=== PATIENT | female | born 1995 | race Caucasian/White ===

== ENCOUNTER 2023-11-13 13:45 | Outpatient (CLI) | payer BC, SELFPAY | END 2023-11-13 13:46 | disposition home or self-care (01) | LOC: NFLDREF 11-16 10:17 | PROVIDERS: PCP Physician Assistant Medical; Referring Provider Physician Assistant Medical; Visit Provider Physician Assistant Medical | DX: N92.0 Excessive and frequent menstruation with regular cycle (principal) | CPT/HCPCS: 80053; 80061; 84443 ==

== ENCOUNTER 2023-11-19 14:32 | Outpatient (CLI) | payer BC, SELFPAY ==
--- NOTE | 2023-11-19 15:00 | CRLHL7_ITS ---
For Patients: As a result of the Century Cures Act, medical imaging exams and procedure reports are released immediately into your electronic medical record. You may view this report before your referring provider. If you have questions, please contact your health care provider. INDICATION: IRREGULAR MENSES COMPARISON: none TECHNIQUE: 2D rogers scale and color Doppler images were acquired of the pelvis using a transabdominal and transvaginal approach. FINDINGS: Sonographic images demonstrate a normal size and smooth outer contour of the uterus. Uterus measures 8.1 cm in length by 4.1 cm in AP diameter by 4.6 cm in transverse dimension. Left superior intramural fibroid measures 10 x 6 x 9 millimeters. The endometrial lining appears normal and measures 5.8 mm in composite thickness. The right ovary measures 4.9 x 3.1 x 2.5 cm in size and the left ovary measures 3.6 x 2.0 x 3.7 cm. The ovaries demonstrate normal arterial and venous blood flow on color Doppler analysis. There are no suspicious fluid collections within the cul-de-sac. Left paraovarian cyst is present measuring 11 x 8 x 14 millimeters. Hypoechoic right ovarian cyst without internal blood flow measures 1.9 x 1.2 x 2.2 cm. Right ovarian cyst with internal septations noted measuring 2.7 x 2.0 x 2.1 cm. No internal blood flow. Simple cyst or dominant follicle left ovary measures 1.3 cm. IMPRESSION: Endometrial thickness 5.8 millimeters. No endometrial fluid. Left fundal intramural fibroid measures 1 cm. Simple left paraovarian cyst measures 1.4 cm and simple left ovarian cyst/dominant follicle measures 1.3 cm. Right ovarian cyst with internal septations measures 2.7 cm. Probable endometrioma right ovary measures 2.2 cm. Dictated by Timbo Bianchi MD @ 11/20/2023 7:06:56 AM (Electronically Signed)
== END 2023-11-19 14:33 | disposition home or self-care (01) ==
LOC: US 14:33
PROVIDERS: PCP Physician Assistant Medical; Visit Provider Physician Assistant Medical
DX: N92.0 Excessive and frequent menstruation with regular cycle (principal); R93.89 Abnormal findings on diagnostic imaging of other specified body structures; D25.1 Intramural leiomyoma of uterus; N83.292 Other ovarian cyst, left side
CPT/HCPCS: 76830; 76856

== ENCOUNTER 2024-02-01 13:58 | Outpatient (CLI) | payer BC, SELFPAY ==
--- NOTE | 2024-02-01 14:00 | CRLHL7_ITS ---
For Patients: As a result of the Century Cures Act, medical imaging exams and procedure reports are released immediately into your electronic medical record. You may view this report before your referring provider. If you have questions, please contact your health care provider. INDICATION: Unspecified ovarian cyst. TECHNIQUE: Transvaginal pelvic ultrasound. Grayscale and color Doppler images. COMPARISON: 11/19/2023 ultrasound. FINDINGS: Uterus is anteverted and measures 8.3 x 3.8 x 5.2 cm. Endometrial stripe thickness is 1 cm. 8 mm sub serosal fibroid in the anterior fundus is unchanged. Complex multi-septated cyst in the right ovary measures 2.1 cm, slightly smaller than on the prior exam was 2.7 cm and is diameter. Previously seen 2.2 cm right ovarian cyst with homogeneous low-level internal echoes has resolved. Left ovary appears normal. Previous left paraovarian cyst was not specifically imaged on today`s exam. IMPRESSION: 1. Resolution of previous right ovarian endometrioma/hemorrhagic cyst. 2. Slight interval decrease in the size of the complex septated right ovarian cyst now measuring 2.1 versus 2.7 cm. Recommend additional follow-up in 6-8 weeks. Dictated by Moshe Saucedo MD @ 02/03/2024 8:56:38 AM (Electronically Signed)
== END 2024-02-01 13:59 | disposition home or self-care (01) ==
LOC: US 13:59
PROVIDERS: PCP Physician Assistant Medical; Visit Provider Obstetrics & Gynecology
DX: N83.201 Unspecified ovarian cyst, right side (principal)
CPT/HCPCS: 76830

== ENCOUNTER 2024-07-26 16:48 | Day surgery (SDC) | payer BC, SELFPAY ==
[2024-07-26] VITALS (20 sets, daily range): BP systolic 93–119; BP diastolic 58–74; PULSE 70–92; RESP 16–18; TEMP 36.9; O2SAT 97–99; BMI 29.1
--- NOTE | 2024-07-26 18:16 | ED_ITS ---
HPI - Abdominal Pain General Date Seen: 07/26/24 Chief Complaint: Abdominal Pain Stated Complaint: extreme stomach pain Time Seen by Provider: 07/26/24 17:44 History of Present Illness HPI narrative: 28-year-old female presents to the ER today for concern for abdominal pain. She was sent to the clinic today by Dr. Mitch Meyer. She has a history of ovarian cysts in uterine fibroids. Per records she had ovarian cyst noted on ultrasounds in 2023. [place]. pelvis 02/01/2024 IMPRESSION: 1. Resolution of previous right ovarian endometrioma/hemorrhagic cyst. 2. Slight interval decrease in the size of the complex septated right ovarian cyst now measuring 2.1 versus 2.7 cm. Recommend additional follow-up in 6-8 weeks. Patient says yesterday evening she started having pain in the central part of her abdomen. It feels bloated and crampy it has been present ever since then. It sounds like it comes and goes leading clear triggering factors other than it is a lot worse when she moves. It made her nauseous. She has had chills but no objectively measured fever. Overnight she had several episodes of loose chunky diarrhea. No bloody or green diarrhea. Although she has been nauseous she has not vomited. Her pain is gotten worse this afternoon actually doubled her over and had her leaning up against the bed. Pain is not really in the same spot as her previous ovarian cyst related pain. She has not had any previous surgery such as gallbladder or appendix. No known abdominal trauma. Related Data Home Medications ?Medication ?Instructions ?Recorded ?Confirmed multivitamin (Daily Multi-Vitamin 1 tab PO QAM 06/02/23 07/26/24 tablet) omega 2-abd-weq-fish oil 60 mg-90 1 cap PO QDAY 06/02/23 07/26/24 mg-500 mg capsule (Fish Oil) flaxseed oil 1,000 mg capsule 1,000 mg PO QDAY 12/31/23 07/26/24 len (Zingiber officinalis) 250 250 mg PO QDAY 12/31/23 07/26/24 mg capsule Allergies Allergy/AdvReac Type Severity Reaction Status Date / Time No Known Drug Allergies [facility]ergy Verified 07/26/24 19:22 [facility] Medical History Family history of breast cancer ?Z80.3 - Family history of malignant neoplasm of breast (ICD-10) Surgical History History of wisdom tooth extraction ?K08.409 - Partial loss of teeth, unspecified cause, unspecified class (ICD- 10) Family History (Updated 01/01/24 @ 09:44 by Radha Murphy MD) Mother Breast cancer Social History (Updated 01/01/24 @ 09:45 by Radha Murphy MD) Narrative: Cis-gender, heterosexual woman. Relationship status: . Spouse/Partner: Brandon Education: High school graduate Occupation: Long-Term services at [employer] Tobacco: Lifetime nonsmoker E-cigarettes: No Alcohol: No Illicit/recreational drugs: No Safety concerns at home or work: No Dietary restriction(s): None Exercise: Yes, at least 3 days a week lifting weights and yoga. She also has a very physical job. What is your current living situation?: I presently have a place to live Problems where you live: no known problems In the past 12 months, utilities in danger of being shut off: no In past 12 months, lack of transportation kept you from medical appts, meetings, work, or getting things needed for daily living: no In the past 12 mos, have been you worried that your food would run out before you had money to buy more?: never true In the past 12 mos, the food you bought just didn't last and you didn't have money to buy more?: never true Smoking Status: Never smoker How often do you have a drink containing alcohol: never AUDIT-C Alcohol total score: 0 Non-prescribed substance use: denies use How often does anyone, including family, friends and others, physically hurt you : never How often does anyone, including family, friends and others, insult or talk down to you: never How often does anyone, including family, friends and others, threaten you with harm: never How often does anyone, including family, friends and others, scream or curse at you: never Exam Narrative: Exam Narrative: Constitutional: Appears well-developed and well-nourished. Alert. Uncomfortable but conversant. Cannot lay back for abdominal exam because it hurts too much to lay flat. HENT: Head: Atraumatic. Nose: Nose normal. Mouth/Throat: Oral mucosa is clear and moist. no trismus. Eyes: Conjunctivae normal. EOM normal. Pupils equal, round, and reactive to light. No scleral icterus. Neck: Normal range of motion. Neck supple. No tracheal deviation present. Cardiovascular: Normal rate, regular rhythm. No gallop. No friction rub. No murmur heard. Symmetric radial artery pulses Pulmonary/Chest: Effort normal. No stridor. No respiratory distress. No wheezes. No rales. No rhonchi . No tenderness. Abdominal: Soft. Bowel sounds normal. No distension. No mass. Diffuse tenderness, seemingly maximal tenderness in the epigastrium and periumbilical region. No definite CVA tenderness. Tenderness seems to be worse in the upper abdomen than the lower. . No rebound. No guarding. Musculoskeletal: RUE: Normal range of motion. No tenderness. No deformity LUE: Normal range of motion. No tenderness. No deformity RLE: Normal range of motion. No edema. No tenderness. No deformity LLE: Normal range of motion. No edema. No tenderness. No deformity Neurological: Alert and oriented to person, place, and time. Normal strength. CN II-VII intact. No sensory deficit. GCS eye subscore is 4. GCS verbal subscore is 5. GCS motor subscore is 6. Normal coordination Skin: Skin is warm and dry. No rash noted. No pallor. Normal capillary refill. Psychiatric: Normal mood. Normal affect. Const: Vital Signs, click to edit/add: Vital Signs - 24 hr 07/26/24 17:06 07/26/24 20:38 07/26/24 20:46 Temperature 98.5 F Pulse Rate 83 Pulse Rate [Right Pulse Oximeter] 90 Respiratory Rate 18 16 Blood Pressure 99/58 L Blood Pressure [Le ft Upper Arm] 110/67 Pulse Oximetry 99 99 97 Oxygen Delivery Il thod Room Air 07/26/24 21:01 07/26/24 21:30 07/26/24 21:31 Temperature Pulse Rate 79 89 Pulse Rate [Right Pulse Oximeter] Respiratory Rate 16 Blood Pressure 95/65 93/60 Blood Pressure [Le ft Upper Arm] Pulse Oximetry 99 98 Oxygen Delivery Il thod 07/26/24 21:32 07/26/24 21:45 Temperature Pulse Rate 89 85 Pulse Rate [Right Pulse Oximeter] Respiratory Rate 16 Blood Pressure 108/67 Blood Pressure [Le ft Upper Arm] Pulse Oximetry 97 98 Oxygen Delivery Me thod Course Course ED Course: Recheck-pain improved after Dilaudid. Resting more comfortably. Blood pressure stable. Labs show white count of 13. Hemoglobin normal at 12. LFTs, lipase, kidney function normal. Recheck-urinalysis abnormal suggesting UTI. Will order Rocephin Recheck-recheck patient. CT scan is back and shows signs of hemoperitoneum. Patient remains hemodynamically stable. Discussed that she has fluid which appears to be blood on the CT scan. Also discussed other incidental findings including lung cysts that need outpatient follow-up. Source unclear but probably coming from a ruptured ovarian cyst. No signs of active bleeding. She continues to have stable vital signs. Consult page placed to windows server architect. Recheck-discussed with Dr. Jones who is currently in the OR with another complex case. She agrees with getting a pelvic ultrasound, repeat hemoglobin in 4 hours. She will see the patient as soon as she is available after completing her operative case. Recheck-Dr. Jones at bedside about 10:10 p.m.. She evaluated the patient remains hemodynamically stable. Recheck-patient's had a syncopal event that occurred as she was having her repeat labs drawn. He was assisted by nurses, bandage placed on his left eyebrow where he scraped it following the floor. He declined medical evaluation. Recheck-repeat hemoglobin drawn at 4:00 a.m. came back down about 2 g compared to initial hemoglobin. This is dropping further than what we would expect from hemodilution from her 1 L of IV saline Discussed with Dr. Jones and the anesthesia team. The plan will be to take the patient to the OR tonight for laparoscopy. Vital Signs Vital signs: Initial Vital Signs Temperature 98.5 F 07/26/24 17:06 Temperature Source Temporal Artery Scan 07/26/24 17:06 Pulse Rate 90 07/26/24 17:06 Respiratory Rate 18 07/26/24 17:06 Blood Pressure 110/67 07/26/24 17:06 Blood Pressure Mean 81 07/26/24 17:06 Blood Pressure Position Sitting 07/26/24 17:06 Pulse Oximetry 99 07/26/24 17:06 Oxygen Delivery Method Room Air 07/26/24 17:06 Vital Signs Temperature 98.5 F 07/26/24 17:06 Pulse Rate 90 07/26/24 17:06 Respiratory Rate 18 07/26/24 17:06 Blood Pressure 110/67 07/26/24 17:06 Pulse Oximetry 99 07/26/24 17:06 Oxygen Delivery Method Room Air 07/26/24 17:06 Temperature 98.5 F 07/26/24 17:06 Pulse Rate 85 07/26/24 21:45 Respiratory Rate 16 07/26/24 21:32 Blood Pressure 108/67 07/26/24 21:32 Pulse Oximetry 98 07/26/24 21:45 Oxygen Delivery Method Room Air 07/26/24 17:06 Medications Administered Medications: Generic Name Dose Route Start Last Admin Trade Name Freq PRN Reason Stop Dose Admin Hydromorphone HCl 0.5 mg 07/26/24 20:59 07/26/24 21:03 Hydromorphone 0.5 Mg/0.5 Ml Inj IVP 0.5 mg Q1H PRN Administration Pain Discontinued Medications Generic Name Dose Route Start Last Admin Trade Name Freq PRN Reason Stop Dose Admin Hydromorphone HCl 0.5 mg 07/26/24 18:28 07/26/24 18:39 Hydromorphone 0.5 Mg/0.5 Ml Inj IVP 0.5 mg Q1H PRN Administration Pain Sodium Chloride 1,000 mls @ 1,000 mls/hr 07/26/24 18:30 07/26/24 19:32 0.9 % Sodium Chloride 1000 Ml IV 07/26/24 19:29 Infused .Q1H JASON Infusion Ceftriaxone Sodium 1 gm/ 100 mls @ 200 mls/hr 07/26/24 20:26 07/26/24 20:42 Sodium Chloride IVPB 07/26/24 20:27 200 mls/hr ONCE ONE Administration Ketorolac Tromethamine 15 mg 07/26/24 18:28 07/26/24 18:39 Ketorolac 15 Mg/Ml Inj IVP 07/26/24 18:29 15 mg ONCE ONE Administration Ondansetron HCl 4 mg 07/26/24 18:28 07/26/24 18:39 Ondansetron 2 Mg/Ml Inj IVP 07/26/24 18:29 4 mg ONCE ONE Administration MDM - Abdominal Pain MDM Narrative Medical decision making narrative: Presented to the Emergency Department with generalized abdominal pain radiating to her right scapula. The differential diagnosis of abdominal pain includes: Appendicitis, Bowel Obstruction, Ulcer, Ischemia, Cholecystitis, Diverticulitis, Pancreatitis, UTI, kidney stone, Enteritis/Colitis, amongst many other etiologies. She has a history of ovarian cyst but is not really having specific pelvic pain and pain is dissimilar to her previous ovarian cyst related pain. Initial laboratory workup shows mild leukocytosis and UTI which we will treat with Rocephin. However her generalized abdominal pain is clearly not explained by urinary tract infection. She is not having flank pain to suggest pyelonephritis. CT scan came back positive for hemoperitoneum especially with blood in the right pericolic gutter which appears to stem from a right adnexal lesion, possibly a ruptured ovarian cyst. However precise source of the hemoperitoneum is not clear. She remains hemodynamically stable. No signs of active extravasation on CT scan. After observation here in the ER she remains hemodynamically stable but hemoglobin is dropping from 12.1 down to 10.2. This is in excess what we would expect from hemodilution from the IV fluids. windows server architect, Dr. Jones, will take the patient to the OR. Incidental note is made of pulmonary cysts. These are discussed with the patient and her . They understand the need for outpatient follow-up with her primary care and referral to pulmonology. She does not have any previous knowledge of the cyst. She does not have any other trouble breathing or any chronic lung disease. No history of cystic fibrosis. Lab Data Labs: Lab Results 07/26/24 07/26/24 07/26/24 Range/Units 18:22 18:28 18:40 WBC 13.37 H (4.50-11.00) K/uL RBC 4.13 (4.00-5.20) m/uL Hgb 12.1 (12.0-16.0) gm/dL Hct 35.5 (33.0-51.0) % MCV 86 (80-100) fL MCH 29 (26-34) pg MCHC 34 (32-36) gm/dL RDW Coeff of Calvin 11.8 (11.5-15.5) % Plt Count 247 (140-440) K/uL Neut % (Auto) 83.5 H (42.0-72.0) % Lymph % (Auto) 11.2 L (20-44) % [place] % (Auto) 4.3 (0.0-11.0) % Eos % (Auto) 0.6 (0.0-7.0) % Baso % (Auto) 0.3 (0.0-3.0) % Neut # (Auto) 11.20 H (1.7-7.0) K/uL Lymph # (Auto) 1.50 (0.90-2.90) K/uL [place] # (Auto) 0.60 (0.00-0.90) K/UL Eos # (Auto) 0.10 (0.00-0.50) K/uL Baso # (Auto) 0.00 (0.00-0.30) K/uL Abs Immat Gran (auto) 0.00 (0.00-0.30) K/uL Imm/Tot Granulo (auto) 0.1 % Sodium 137 (135-149) mmol/L Potassium 3.9 (3.6-5.1) mmol/L Chloride 103 (96-114) mmol/L Carbon Dioxide 23 (20-32) mmol/L Anion Gap 11 (7-15) mEq/L BUN 18 (5-24) mg/dL Creatinine 0.6 (0.5-1.5) mg/dL Estimated Creat Clear 129.51 Estimated GFR 125 ml/min Glucose 112 (60-115) mg/dL Calcium 8.9 (8.4-10.6) mg/dL Total Bilirubin 0.3 (0.1-1.5) mg/dL AST 19 (12-35) U/L ALT 22 (4-35) U/L Alkaline Phosphatase 69 (40-150) U/L Total Protein 6.9 (6.0-8.3) g/dL Albumin 4.6 (3.3-5.0) g/dL Lipase 85 (23-300) U/L Urine Color Yellow (Yellow) Urine Appearance Cloudy A (Clear) Urine pH 6.5 (5.0-8.5) Ur Specific [place] 1.025 (1.000-1.030) Urine Protein 3+ A (Negative) Urine Glucose (UA) Negative (Negative) Urine Ketones Trace A (Negative) Urine Blood 3+ A (Negative) Urine Nitrite Negative (Negative) Urine Bilirubin 1+ A (Negative) Urine Urobilinogen 0.2 (0.2-1.0) Ur Leukocyte Esterase 3+ A (Negative) Urine RBC 25-50 A (0-2) Urine WBC 10-25 A (0-5) Ur Squamous Epith Cells Few (None-Few) Urine Bacteria Moderate A (None) Urine HCG, Qual Negative (Negative) 07/26/24 Range/Units 22:15 WBC 9.40 (4.50-11.00) K/uL RBC 3.44 L (4.00-5.20) m/uL Hgb 10.2 L (12.0-16.0) gm/dL Hct 29.6 L (33.0-51.0) % MCV 86 (80-100) fL MCH 30 (26-34) pg MCHC 35 (32-36) gm/dL RDW Coeff of Calvin 11.9 (11.5-15.5) % Plt Count 211 (140-440) K/uL Neut % (Auto) 78.2 H (42.0-72.0) % Lymph % (Auto) 15.7 L (20-44) % [place] % (Auto) 4.7 (0.0-11.0) % Eos % (Auto) 0.3 (0.0-7.0) % Baso % (Auto) 0.2 (0.0-3.0) % Neut # (Auto) 7.40 H (1.7-7.0) K/uL Lymph # (Auto) 1.50 (0.90-2.90) K/uL [place] # (Auto) 0.40 (0.00-0.90) K/UL Eos # (Auto) 0.03 (0.00-0.50) K/uL Baso # (Auto) 0.02 (0.00-0.30) K/uL Abs Immat Gran (auto) 0.08 (0.00-0.30) K/uL Imm/Tot Granulo (auto) 0.9 % Sodium (135-149) mmol/L Potassium (3.6-5.1) mmol/L Chloride (96-114) mmol/L Carbon Dioxide (20-32) mmol/L Anion Gap (7-15) mEq/L BUN (5-24) mg/dL Creatinine (0.5-1.5) mg/dL Estimated Creat Clear Estimated GFR ml/min Glucose (60-115) mg/dL Calcium (8.4-10.6) mg/dL Total Bilirubin (0.1-1.5) mg/dL AST (12-35) U/L ALT (4-35) U/L Alkaline Phosphatase (40-150) U/L Total Protein (6.0-8.3) g/dL Albumin (3.3-5.0) g/dL Lipase (23-300) U/L Urine Color (Yellow) Urine Appearance (Clear) Urine pH (5.0-8.5) Ur Specific [place] (1.000-1.030) Urine Protein (Negative) Urine Glucose (UA) (Negative) Urine Ketones (Negative) Urine Blood (Negative) Urine Nitrite (Negative) Urine Bilirubin (Negative) Urine Urobilinogen (0.2-1.0) Ur Leukocyte Esterase (Negative) Urine RBC (0-2) Urine WBC (0-5) Ur Squamous Epith Cells (None-Few) Urine Bacteria (None) Urine HCG, Qual (Negative) Imaging Data CT scan - chest: Attestation: I have reviewed the pertinent imaging results. Radiologist's impression: IMPRESSION: 1. Negative for acute pulmonary embolism. 2. Trace bilateral pleural effusions with bibasilar atelectasis. 3. Multiple small air cysts throughout both lungs. Consider outpatient pulmonology consult. CT scan - abdomen: Attestation: I have reviewed the pertinent imaging results. Radiologist's impression: IMPRESSION: 1. Moderate volume hemoperitoneum throughout the abdomen and pelvis which is most hyperdense in the pelvis. No definite focus of active extravasation is seen. This may be related to a ruptured hemorrhagic ovarian cyst but is indeterminate. 2. The ovaries are enlarged and contain multiple follicles without discrete adnexal mass visualized. Consider further evaluation with pelvic ultrasound. 3. Trace bilateral pleural effusions. US - abdomen: Attestation: I have reviewed the pertinent imaging results. Radiologist's impression: IMPRESSION: 1. Heterogeneous echogenic material is present in the cul de sac which may represent blood products from hemoperitoneum. Hemorrhage from a ruptured cyst should be considered. Clinical follow-up is advised. Discharge Plan Discharge Clinical Impression: Hemoperitoneum, Anemia, UTI (urinary tract infection), Lung cyst Patient Disposition: XFER to OR Condition: Guarded Follow Up/Referrals: Jatin Perez PA-C [Primary Care Provider] -
[2024-07-26 18:29] LABS: Appearance Urine Cloudy (Clear); Bilirubin Urine 1+ (Negative); Blood Urine 3+ (Negative); Color Urine Yellow (Yellow); Glucose Urine Negative (Negative); Ketones Urine Trace (Negative); Leukocyte Esterase Urine 3+ (Negative); Nitrite Urine Negative (Negative); Protein Urine 3+ (Negative); Specific Gravity Urine 1.025 (1.000-1.030); Urobilinogen Urine 0.2 (0.2-1.0); pH Urine 6.5 (5.0-8.5)
--- NOTE | 2024-07-26 18:29 | CRLHL7_ITS ---
For Patients: As a result of the Century Cures Act, medical imaging exams and procedure reports are released immediately into your electronic medical record. You may view this report before your referring provider. If you have questions, please contact your health care provider. INDICATION: Epigastric abdominal pain, right scapular pain, diarrhea. TECHNIQUE: CT of the abdomen and pelvis acquired with 89 cc Isovue 370 IV contrast. Coronal and sagittal reconstructions. COMPARISON: Pelvic ultrasound 02/01/2024. FINDINGS: Lower chest: Trace bilateral pleural effusions with bibasilar atelectasis. Multiple small pulmonary air cysts are seen in the lung bases. Liver: Normal in size and attenuation. No suspicious masses. Gallbladder and bile ducts: Unremarkable. No biliary dilation. Spleen: Unremarkable. Pancreas: Unremarkable. Adrenal glands: Unremarkable. Kidneys, Ureters, and Bladder: Symmetric enhancement. No hydronephrosis or ureteral dilation. No obstructing urinary calculi identified. No bladder wall thickening. There is a small amount of excreted contrast layering in the bladder. Reproductive organs: The uterus appears grossly unremarkable. The ovaries are enlarged and contain multiple follicles. GI tract/Peritoneum: No small bowel dilation. Large stool burden. The appendix contains hyperdense material but is otherwise normal in caliber with no surrounding inflammation. No intraperitoneal free air. There is a moderate amount of high density free fluid throughout the abdomen and pelvis which is most hyperdense in the right anterior pelvis and pelvic cul-de-sac. Findings are compatible with blood products. No definite focus of active extravasation is seen. Vasculature: Abdominal aorta is normal in caliber. Mesenteric arteries appear patent. Lymph nodes: No lymphadenopathy. Abdominal Wall: Unremarkable. Bones: Unremarkable for age. IMPRESSION: 1. Moderate volume hemoperitoneum throughout the abdomen and pelvis which is most hyperdense in the pelvis. No definite focus of active extravasation is seen. This may be related to a ruptured hemorrhagic ovarian cyst but is indeterminate. 2. The ovaries are enlarged and contain multiple follicles without discrete adnexal mass visualized. Consider further evaluation with pelvic ultrasound. 3. Trace bilateral pleural effusions. Please note that all CT scans at this facility use dose modulation, iterative reconstruction, and/or weight-based dosing when appropriate to reduce radiation dose to as low as reasonably achievable. Dictated by Melissa Barney MD @ 07/26/2024 8:00:56 PM (Electronically Signed)
[2024-07-26] MEDS: 0.9 % SODIUM CHLORIDE 1000 ml 1,000 ML IV (18:39)
[2024-07-26] MEDS: KETOROLAC 15 MG/ML inj IVP (18:39)
[2024-07-26] MEDS: HYDROmorphone 0.5 mg/0.5 ml inj IVP ×2 (18:39→21:03)
[2024-07-26] MEDS: ONDANSETRON 2 MG/ML inj 4 MG IVP (18:39)
[2024-07-26 18:50] LABS: Basophils Percent Auto 0.3 % (0.0-3.0); Eosinophils Percent Auto 0.6 % (0.0-7.0); Hematocrit 35.5 % (33.0-51.0); Hemoglobin* 12.1 gm/dL (12.0-16.0); Immature Granulocytes Pct Auto 0.1 %; Lymphocytes Percent Auto 11.2 % (20-44); Mean Corpuscular HGB Conc 34 gm/dL (32-36); Mean Corpuscular Hemoglobin 29 pg (26-34); Mean Corpuscular Volume 86 fL (80-100); Monocytes Percent Auto 4.3 % (0.0-11.0); Neutrophils Percent Auto 83.5 % (42.0-72.0); Platelet Count* 247 K/uL (140-440); RDW Coefficient of Variation % 11.8 % (11.5-15.5); Red Blood Count 4.13 m/uL (4.00-5.20); White Blood Count* 13.37 K/uL (4.50-11.00)
[2024-07-26 18:53] LABS: Bacteria Urine Moderate; RBC Urine 25-50 (0-2); Squamous Epithelial Cell Urine Few (None-Few)
[2024-07-26 18:58] LABS: Slide Review Reflex No
[2024-07-26 19:06] LABS: Albumin* 4.6 g/dL (3.3-5.0); Chloride* 103 mmol/L (96-114); Potassium* 3.9 mmol/L (3.6-5.1); Sodium* 137 mmol/L (135-149)
[2024-07-26 19:08] LABS: Alanine Aminotransferase* 22 U/L (4-35); Alkaline Phosphatase* 69 U/L (40-150); Anion Gap 11 mEq/L (7-15); Aspartate Amino Transferase* 19 U/L (12-35); Bilirubin Total* 0.3 mg/dL (0.1-1.5); Blood Urea Nitrogen* 18 mg/dL (5-24); Carbon Dioxide* 23 mmol/L (20-32); Creatinine* 0.6 mg/dL (0.5-1.5); Est. Creatinine Clearance* 129.51; Estimated Glomerular Filt Rate 125 ml/min; Total Protein* 6.9 g/dL (6.0-8.3)
[2024-07-26 19:09] LABS: Calcium* 8.9 mg/dL (8.4-10.6); Glucose* 112 mg/dL (60-115); Lipase* 85 U/L (23-300)
[2024-07-26 19:22] LABS: Ur HCG Qualitative* Negative (Negative)
--- NOTE | 2024-07-26 19:30 | CRLHL7_ITS ---
For Patients: As a result of the Century Cures Act, medical imaging exams and procedure reports are released immediately into your electronic medical record. You may view this report before your referring provider. If you have questions, please contact your health care provider. INDICATION: Right scapula pain, chest pain. TECHNIQUE: CT chest angiogram acquired with 89 cc Isovue 370 IV contrast according to the PE protocol. Coronal and sagittal reconstructions. 3D MIPS post-processing was performed. COMPARISON: None. FINDINGS: Cardiovascular structures: Normal heart size. Normal caliber thoracic aorta and central pulmonary arteries. No acute pulmonary embolism identified. Mediastinum and nathan: No pathologically enlarged lymph nodes. No pericardial effusion. Lungs and pleura: Trace bilateral pleural effusions with bibasilar atelectasis. No focal consolidation or pneumothorax. No suspicious pulmonary nodules. No significant bronchial wall thickening. There are multiple small thin-walled air cysts throughout both lungs. Chest wall: No mass or adenopathy. Upper abdomen: Please refer to separate report. Bones: Unremarkable for age. No acute fracture identified. IMPRESSION: 1. Negative for acute pulmonary embolism. 2. Trace bilateral pleural effusions with bibasilar atelectasis. 3. Multiple small air cysts throughout both lungs. Consider outpatient pulmonology consult. Please note that all CT scans at this facility use dose modulation, iterative reconstruction, and/or weight-based dosing when appropriate to reduce radiation dose to as low as reasonably achievable. Dictated by Melissa Barney MD @ 07/26/2024 8:11:55 PM (Electronically Signed)
--- NOTE | 2024-07-26 20:28 | CRLHL7_ITS ---
For Patients: As a result of the Century Cures Act, medical imaging exams and procedure reports are released immediately into your electronic medical record. You may view this report before your referring provider. If you have questions, please contact your health care provider. INDICATION: Abdominal pain, ovarian cyst, Pelvic pain TECHNIQUE: Ultrasound pelvis transvaginal. Endovaginal imaging was performed to better visualize the endometrium and ovaries. Real-time rogers scale sonographic images with spectral and color Doppler imaging of the ovaries were obtained. COMPARISON: 02/01/2024 FINDINGS: Uterus: 9 x 5 x 3.7 cm. Normal echotexture of the myometrium noted with no masses are seen. Endometrium: No sign of endometrial mass or fluid present. Right ovary: 4.8 x 3.3 x 2.7 cm. There is a heterogeneous lesion with internal echogenicities and shadowing within the right ovary 1.5 cm which may represent a partially calcified lesion. Normal arterial and venous blood flow seen in the right ovary. Left ovary: 4.6 x 3.4 x 2.3 cm. The left ovary is normal in appearance and echotexture. Doppler exam of the ovary is limited. Cul-de-sac: Heterogeneous echogenic material is present in the cul de sac which may represent blood products from hemoperitoneum. IMPRESSION: 1. Heterogeneous echogenic material is present in the cul de sac which may represent blood products from hemoperitoneum. Hemorrhage from a ruptured cyst should be considered. Clinical follow-up is advised. Dictated by Andres Daugherty MD @ 07/26/2024 9:58:47 PM Dictated by: Andres Daugherty MD @ 07/26/2024 21:59:05 (Electronically Signed)
[2024-07-26] MEDS: cefTRIAXone 1 GM in 0.9 % SODIUM CHLORIDE Mini-bag 100 ML IVPB (20:42)
[2024-07-26 22:41] LABS: Basophils Absolute Auto 0.02 K/uL (0.00-0.30); Basophils Percent Auto 0.2 % (0.0-3.0); Eosinophils Absolute Auto 0.03 K/uL (0.00-0.50); Eosinophils Percent Auto 0.3 % (0.0-7.0); Hematocrit 29.6 % (33.0-51.0); Hemoglobin* 10.2 gm/dL (12.0-16.0); Immature Granulocytes Abs Auto 0.08 K/uL (0.00-0.30); Immature Granulocytes Pct Auto 0.9 %; Lymphocytes Percent Auto 15.7 % (20-44); Mean Corpuscular HGB Conc 35 gm/dL (32-36); Mean Corpuscular Hemoglobin 30 pg (26-34); Mean Corpuscular Volume 86 fL (80-100); Monocytes Percent Auto 4.7 % (0.0-11.0); Neutrophils Percent Auto 78.2 % (42.0-72.0); Platelet Count* 211 K/uL (140-440); RDW Coefficient of Variation % 11.9 % (11.5-15.5); Red Blood Count 3.44 m/uL (4.00-5.20)
[2024-07-26 22:43] LABS: Slide Review Reflex No
[2024-07-26] MEDS: LACTATED RINGERS 1000 ML 1,000 ML 75 ML IV (23:24)
--- NOTE | 2024-07-26 23:27 | P.GYNCN_ITS ---
INSTRUMENTATION INSTRUCTOR - CN: HPI Data of Consult Date Seen: 07/26/24 Patient: [facility] Patient Consult date: 07/26/24 Requesting Physician: Katie Joens MD Primary Care Provider: Jatin Perez PA-C Consult Narrative Reason for consult: abdominal pain Narrative: Nasima Ann is a 28 year old female seen by request of Dr. Oniel Stone for evaluation of suspected hemoperitoneum on CT of abdomen and pelvis. I have reviewed the available images and discussed my findings and recommendations with Dr. Stone. Nasima is a 28-year-old G0 woman who has a history of ovarian cyst. On pelvic ultrasound 11/19/2023, she was found to have a uterus of normal dimensions. She had a 10 mm intramural fibroid. Endometrial stripe was normal. There was a left paraovarian cyst measuring 14 mm in greatest dimension. There was a hypoechoic right ovarian cyst without internal blood flow measuring 2.2 cm in greatest dimension, and right ovarian cyst with internal septations noted measuring 2.7 cm in greatest dimension. Simple cyst/dominant follicle on left ovary measuring 1.3 cm. She had of follow-up pelvic ultrasound 02/01/2024. This showed a complex multi septated cyst in the right ovary measuring 2.1 cm in greatest dimension. The previously right ovarian cyst measuring 2.7 cm in greatest dimension had resolved. [facility] by Dr. Murphy in January of 2024. Dr. Murphy did not recommend surgery for the ovarian cyst at that time. She did recommend a fertility evaluation, as the patient has been sexually active with her since the latter part of 2022 without conception and has not been using contraception. Tonight, she developed severe pelvic pain, and presented to the ER for the same. She had a CT scan for evaluation: IMPRESSION: 1. Moderate volume hemoperitoneum throughout the abdomen and pelvis which is most hyperdense in the pelvis. No definite focus of active extravasation is seen. This may be related to a ruptured hemorrhagic ovarian cyst but is indeterminate. 2. The ovaries are enlarged and contain multiple follicles without discrete adnexal mass visualized. Consider further evaluation with pelvic ultrasound. 3. Trace bilateral pleural effusions. This was followed by a pelvic ultrasound: Uterus: 9 x 5 x 3.7 cm. Normal echotexture of the myometrium noted with no masses are seen. Endometrium: No sign of endometrial mass or fluid present. Right ovary: 4.8 x 3.3 x 2.7 cm. There is a heterogeneous lesion with internal echogenicities and shadowing within the right ovary 1.5 cm which may represent a partially calcified lesion. Normal arterial and venous blood flow seen in the right ovary. Left ovary: 4.6 x 3.4 x 2.3 cm. The left ovary is normal in appearance and echotexture. Doppler exam of the ovary is limited. Cul-de-sac: Heterogeneous echogenic material is present in the cul de sac which may represent blood products from hemoperitoneum. IMPRESSION: 1. Heterogeneous echogenic material is present in the cul de sac which may represent blood products from hemoperitoneum. Hemorrhage from a ruptured cyst should be considered. Clinical follow-up is advised. She was treated with IV Dilaudid, and her pain is improved. Over the course of 4 hours, her hemoglobins were followed. Her hemoglobin fell from 12.1-10.2 over the course of this time. She did receive 1 L of crystalloid during this time. Urine test is negative. 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 Relationship status: . Spouse/Partner: Brandon Education: High school graduate Occupation: [employer] services at [employer] Tobacco: Lifetime nonsmoker E-cigarettes: No Alcohol: No Illicit/recreational drugs: No Safety concerns at home or work: No Dietary restriction(s): None Exercise: Yes, at least 3 days a week lifting weights and yoga. She also has a very physical job. What is your current living situation?: I presently have a place to live Problems where you live: no known problems In the past 12 months, utilities in danger of being shut off: no In past 12 months, lack of transportation kept you from medical appts, meetings, work, or getting things needed for daily living: no In the past 12 mos, have been you worried that your food would run out before you had money to buy more?: never true In the past 12 mos, the food you bought just didn't last and you didn't have money to buy more?: never true Smoking Status: Never smoker How often do you have a drink containing alcohol: never AUDIT-C Alcohol total score: 0 Non-prescribed substance use: denies use How often does anyone, including family, friends and others, physically hurt you : never How often does anyone, including family, friends and others, insult or talk down to you: never How often does anyone, including family, friends and others, threaten you with harm: never How often does anyone, including family, friends and others, scream or curse at you: never Meds Home Medications and Allergies Home Medications ?Medication ?Instructions ?Recorded ?Confirmed ?Type multivitamin (Daily Multi-Vitamin 1 tab PO QAM 06/02/23 07/26/24 History tablet) omega 8-hsz-qiu-fish oil 60 mg-90 1 cap PO QDAY 06/02/23 07/26/24 History mg-500 mg capsule (Fish Oil) flaxseed oil 1,000 mg capsule 1,000 mg PO QDAY 12/31/23 07/26/24 History len (Zingiber officinalis) 250 250 mg PO QDAY 12/31/23 07/26/24 History mg capsule Allergies Allergy/AdvReac Type Severity Reaction Status Date / Time No Known Drug Allergies Allergy Verified 07/26/24 19:22 INSTRUMENTATION INSTRUCTOR - Exam Physical Exam: Vital signs: Temp Pulse Resp BP Pulse Ox O2 Del Method 98.5 F 85 16 119/74 98 Room Air 07/26/24 23:26 07/26/24 23:26 07/26/24 23:26 07/26/24 23:26 07/26/24 23:26 07/26/24 23:26 Narrative: Physical exam: Vitals as noted above. General: No acute distress Psych: Alert and oriented x 3, full affect HEENT: Normocephalic, atraumatic Abdomen: Normoactive bowel sounds, soft, no tenderness, rebound, of bald Mar guarding is noted; this is after patient has received Dilaudid. Pelvic exam: Deferred to OR INSTRUMENTATION INSTRUCTOR - Results Labs Labs: Short CBC 07/26/24 07/26/24 Range/Units 18:40 22:15 WBC 13.37 H 9.40 (4.50-11.00) K/uL Hgb 12.1 10.2 L (12.0-16.0) gm/dL Hct 35.5 29.6 L (33.0-51.0) % Plt Count 247 211 (140-440) K/uL BMP 07/26/24 18:40 Sodium 137 Potassium 3.9 Chloride 103 Carbon Dioxide 23 BUN 18 Creatinine 0.6 Glucose 112 Calcium 8.9 Liver Function 07/26/24 Range/Units 18:40 Total Bilirubin 0.3 (0.1-1.5) mg/dL AST 19 (12-35) U/L ALT 22 (4-35) U/L Alkaline Phosphatase 69 (40-150) U/L Albumin 4.6 (3.3-5.0) g/dL Urine 07/26/24 Range/Units 18:22 Urine Color Yellow (Yellow) Urine Appearance Cloudy A (Clear) Urine pH 6.5 (5.0-8.5) Ur Specific Seneca 1.025 (1.000-1.030) Urine Protein 3+ A (Negative) Urine Glucose (UA) Negative (Negative) Assessment and Plan Assessment and plan (1) Ruptured ovarian cyst: Status: Acute (2) Hemoperitoneum: Status: Acute Plan Given the continuing drop in her hemoglobin, I recommended laparoscopy with evacuation of hemoperitoneum and possible ovarian cystectomy. We discussed the risks of procedures, including bleeding/hemorrhage, infection, the low likelihood of blood transfusion, damage to internal organs, risks of anesthesia. Consent form was reviewed with and signed by patient.
[2024-07-27] VITALS (16 sets, daily range): BP systolic 94–114; BP diastolic 55–67; PULSE 73–96; RESP 12–22; TEMP 36.4–37.1; O2SAT 95–99
[2024-07-27] MEDS: BUPIVACAINE 0.25% 30 ML INJECTION (00:59)
--- NOTE | 2024-07-27 01:43 | P.ANES_ITS ---
Anesthesia Charges Start Date/Time Anesthesia Start Date: 07/26/24 Anesthesia Start Time: 23:24 Stop Date/Time Anesthesia Stop Date: 07/27/24 Anesthesia Stop Time: 01:41 Summary Emergency: BANK CASHIER Coding CPT Codes CPT Codes: ANESTH SURG LOWER ABDOMEN - 64522 ([id number]) P1 - NORMAL HEALTHY PATIENT, QZ - BANK CASHIER SVC W/O HEARING OFFICER BY Additional Codes: Summary - Emergency: BANK CASHIER ([id number])
--- NOTE | 2024-07-27 01:43 | W.ANESCHARGE ---
Anesthesia Charges Start Date/Time Anesthesia Start Date: 07/26/24 Anesthesia Start Time: 23:24 Stop Date/Time Anesthesia Stop Date: 07/27/24 Anesthesia Stop Time: 01:41 Summary Emergency: INTERMEDIATE SCHOOL TEACHER Coding CPT Codes CPT Codes: ANESTH SURG LOWER ABDOMEN - 12458 ([id number]) P1 - NORMAL HEALTHY PATIENT, QZ - INTERMEDIATE SCHOOL TEACHER SVC W/O HAND BOOKBINDER BY Additional Codes: Summary - Emergency: INTERMEDIATE SCHOOL TEACHER ([id number])
--- NOTE | 2024-07-27 01:46 | SUR.PHASEI ---
Patient came to PACU awake and appropriate, stated no pain or nausea when asked. Warm blankets provided.
[2024-07-27] MEDS: MEPERIDINE 25 MG/ML INJ 12.5 MG IVP (01:50)
--- NOTE | 2024-07-27 01:54 | P.GYNPRC_ITS ---
Procedure Note Date of procedure: 07/27/24 Will [facility] bill your pro fee for this procedure?: Yes Pre-op diagnosis: Abdominal pain Hemoperitoneum on CT of abdomen and pelvis Post-op diagnosis: Hemoperitoneum, apparently originating from right hematosalpinx Dilated right fallopian tube with suspected endometrioma filling the mid isthmic portion and clotted blood at the fimbriated edge Endometriosis Procedure: Laparoscopy with evacuation of hemoperitoneum, fulguration and excision of endometriosis, and right salpingectomy Anesthesia: GETA Complications: None Surgeon: Katie Jones MD Estimated blood loss (mL): 220 (210 of hemoperitoneum, 10 cc intraoperative blood loss) IV fluids (mL): 1,000 Urine Output (mL): 150 Pathology: specimen obtained, sent to pathology (1. Biopsy of cul-de-sac 2. Nodule in right ovarian fossa 3. Right tube) Condition: stable Disposition: PACU Findings: 1. Upon pelvic exam under anesthesia, the cervix and vagina were normal in appearance. Uterus was mobile and anteverted, of normal size and texture. There were no palpable adnexal masses. 2. Upon laparoscopy, survey of the upper abdomen revealed dark red blood adjacent to the liver and stomach. Otherwise, there was a normal appearance to the inferior edge of the liver, gallbladder and stomach. Bowels were grossly normal appearance, as was the appendix. Survey of the pelvis revealed normal appearance to the uterus. Right tube was dilated beginning in its midportion, extending to the fimbria, and had adherent, clotted blood at the fimbriated edge. Left tube was normal appearance. There was 1 follicle on the surface of the right ovary. There was an endometriotic implant on the surface of the left ovary, which was associated with a very small apparent endometrioma. The cul-de-sac showed some subtle tiny erythematous macules along the right side. There was a nodule of deep infiltrating endometriosis in the right ovarian fossa superior to the ureter. The bladder reflection was normal in appearance. Procedure Description: Patient was taken to the operating room with IV running. She was positioned in dorsal lithotomy position with her legs fully supported in Yellofin stirrups. General anesthesia was administered. She was prepped and draped in the usual sterile fashion. Bimanual exam was performed for the above-noted findings. Speculum was inserted. A single-toothed uterine manipulator was inserted th rough the cervix into the lower uterine segment, and affixed to the anterior cervical lip. Speculum was removed. Khan catheter was placed. Patient's legs were placed in neutral position. Attention was turned to patient's abdomen. The infraumbilical area was infiltrated with small amount of Marcaine. An infraumbilical incision was made with a scalpel and carried through to the underlying layer of fascia with a hemostat. The 5 mm Fios Kii trocar was assembled with laparoscope within, and insufflator attached. While tenting up the abdomen manually, the trocar was passed through the anterior abdominal wall into the peritoneal cavity. Trocar was removed. Pneumoperitoneum was achieved. Survey of abdomen and pelvis revealed the above-noted findings. Two additional port sites were created. The first was in the patient's left lower quadrant, just superior medial to the left ASIS. The second was a hand's breath superior to and slightly medial to the first. The third was in the pat ient's right lower quadrant, just superior medial to the right ASIS. Each was infiltrated with small amount of Marcaine prior to incision. An 11 mm incision was made at the LLQ site, and a 5 mm at the left abdominal port site, making sure the large vessels were out of harm's way. A Fios Kii port was inserted at each site (an 11 mm in the LLQ and a 5 mm in the left abdomen), under direct visualization and without complication. The balloon on each of the three ports was inflated, holding each in place. The larger suction student loan counselor was used to evacuate the abdomen and pelvis of clotted blood; a total of 210 mL was removed in this way. The peritoneum of the cul-de-sac was elevated with laparoscopic Maryland forceps and of excisional biopsy of the above described macules was performed sharply. Hemostasis of the dissection bed was achieved with monopolar cautery. The deep infiltrating endometriotic nodule along the right ovarian fossa was similarly grasped with Maryland forceps and held away from the pelvic sidewall. The ureter was found to be inferior to this lesion. It was excised sharply and sent to pathology. Hemostasis was achieved at this site with monopolar cautery. The surface of the left ovary exhibited a black endometriotic nodule. I did treat this with monopolar cautery, but in the process, an apparent small cyst was ruptured, consistent in appearance with a chocolate cyst. I fully examined this tiny cyst cavity and no remaining cyst wall was noted. The bed was hemostatic. Finally, the right fallopian tube was elevated away from the adjacent ovary. The mesosalpinx was divided with the Thunderbeat by polar device, moving laterally to medially, and the tube was amputated at the right uterine cornua. I was unable to remove the tube the left lower quadrant port site without an Endo-Catch bag, which was ultimately inserted, deployed, and the tube was placed within. This was then removed from the abdomen within the bag and sent to pathology for further analysis. Hemostasis of the right mesosalpinx was noted. The left lower quadrant port had been removed. Initially, an attempt was made to close the fascial defect with a Daniel-Bryan device, but this was successful in closing only the peritoneum. Thus, the fascia was identified through the abdomen, grasped with Yessica, and closed with a single stitch of 0 Vicryl. The balloon tips of the remaining 2 ports were deflated and the pneumoperitoneum was released. The ports were removed. The Bovie was used to obtain hemostasis at each port site. Skin of each port site was closed with a subcuticular stitch of 4-0 Monocryl. Surgical glue was applied above this. The patient's legs were placed back in lithotomy position. The uterine manipulator was removed and hemostasis of the cervix was noted. The Khan catheter was removed. The patient tolerated procedure well and was taken to recovery area in stable condition.
--- NOTE | 2024-07-27 01:55 | SUR.PHASEI ---
Patient having shaking from anesthesia and the hiccups, Meperidine 12.5 mg given IV.
--- NOTE | 2024-07-27 02:07 | SUR.PHASEI ---
Meperidine helped with shaking and hiccups are now gone also. Patient meets discharge criteria from PACU
[2024-07-27] MEDS: LACTATED RINGERS 1000 ML 1,000 ML 100 ML IV (02:09)
[2024-07-27] MEDS: KETOROLAC 30 MG/ML inj IVP ×2 (02:49→09:01)
[2024-07-27] MEDS: ACETAMINOPHEN 500 MG TABLET 1000 MG PO ×2 (06:46→12:26)
[2024-07-27] MEDS: OXYCODONE 5 MG TABLET PO ×3 (06:46→11:59)
--- NOTE | 2024-07-27 08:12 | P.GYNPN_ITS ---
FELT PULLER - A/P Assessment and plan (1) S/P laparoscopy: Problem details: Right salpingectomy for endometriosis, evacuation of hemoperitoneum, fulguration of endometriosis Status: Acute Plan Will administer a second dose of oxycodone po now, and another dose of Toradol 30 mg IV at 9:00 am. Reassess for discharge later this morning. Will add antibiotic for UTI to discharge instructions. Postoperative Procedures: Procedures Operation Date: 07/26/24 23:30 Actual Procedure Side Surgeon p Diagnostic Laparoscopy, evacuation of hemoperitoneum,fulguration and excision of endometriosis,right salpingectomy Katie Jones MD Postoperative day: 1 Postoperative status: marginal pain control Postoperative plan: routine post-op care Time Spent With Patient Time: Total time spent is greater than 50% in coordination of care (as documented) at patient's floor/unit and/or counseling patient: Time with patient: less than 15 minutes FELT PULLER- PN:Subj Post-Op Subjective Time Seen by Provider: 08:00 Date Seen: 07/27/24 Post Operative Details: Post-operative day number 1: status post Laparoscopy with right salpingectomy, evacuation of hemoperitoneum, and fulguration of endometriosis. She complains of pain near the LLQ incisions, rates 8/10, worse with movement. Was able to get up to bathroom with assist. Pain level is described as improved from the pain that brought h into the E.R. Denies nausea, states that she is hungry. Has questions about treatment for UTI. Was diagnosed last evening and treated with a dose of ceftriaxone. Subjective: pain not well controlled FELT PULLER-PN: Obj Exam Physical Exam: Vital signs: Temp Pulse Resp BP Pulse Ox O2 Del Method 97.9 F 87 16 99/63 96 Room Air 07/27/24 02:25 07/27/24 05:25 07/27/24 05:25 07/27/24 05:25 07/27/24 05:25 07/27/24 05:25 Constitutional: Constitutional: no acute distress (while lying still in bed) Routine HEENT Exam: Head: Present normal inspection Routine Neck Exam: Neck: Present supple Routine Respiratory Exam: Respiratory: Present CTA bilaterally Routine Cardiovascular Exam: Cardiovascular: Present RRR Routine Abdominal Exam: Comments: Soft, nondistended, incisions clean, dry, intact. No surrounding ecchymoses or erythema. Tenderness is centered around LLQ lower 11 mm incision site. FELT PULLER - PN: Obj Data Labs Labs: Laboratory Results - last 24 hr 07/26/24 07/26/24 07/26/24 18:22 18:28 18:40 WBC 13.37 H RBC 4.13 Hgb 12.1 Hct 35.5 MCV 86 MCH 29 MCHC 34 RDW Coeff of Calvin 11.8 Plt Count 247 Neut % (Auto) 83.5 H Lymph % (Auto) 11.2 L Finney % (Auto) 4.3 Eos % (Auto) 0.6 Baso % (Auto) 0.3 Neut # (Auto) 11.20 H Lymph # (Auto) 1.50 Finney # (Auto) 0.60 Eos # (Auto) 0.10 Baso # (Auto) 0.00 Abs Immat Gran (auto) 0.00 Imm/Tot Granulo (auto) 0.1 Sodium 137 Potassium 3.9 Chloride 103 Carbon Dioxide 23 Anion Gap 11 BUN 18 Creatinine 0.6 Estimated Creat Clear 129.51 Estimated GFR 125 Glucose 112 Calcium 8.9 Total Bilirubin 0.3 AST 19 ALT 22 Alkaline Phosphatase 69 Total Protein 6.9 Albumin 4.6 Lipase 85 Urine Color Yellow Urine Appearance Cloudy A Urine pH 6.5 Ur Specific Barry 1.025 Urine Protein 3+ A Urine Glucose (UA) Negative Urine Ketones Trace A Urine Blood 3+ A Urine Nitrite Negative Urine Bilirubin 1+ A Urine Urobilinogen 0.2 Ur Leukocyte Esterase 3+ A Urine RBC 25-50 A Urine WBC 10-25 A Ur Squamous Epith Cells Few Urine Bacteria Moderate A Urine HCG, Qual Negative Blood Type Antibody Screen 07/26/24 07/26/24 22:15 Unknown WBC 9.40 RBC 3.44 L Hgb 10.2 L Hct 29.6 L MCV 86 MCH 30 MCHC 35 RDW Coeff of Calvin 11.9 Plt Count 211 Neut % (Auto) 78.2 H Lymph % (Auto) 15.7 L Finney % (Auto) 4.7 Eos % (Auto) 0.3 Baso % (Auto) 0.2 Neut # (Auto) 7.40 H Lymph # (Auto) 1.50 Finney # (Auto) 0.40 Eos # (Auto) 0.03 Baso # (Auto) 0.02 Abs Immat Gran (auto) 0.08 Imm/Tot Granulo (auto) 0.9 Sodium Potassium Chloride Carbon Dioxide Anion Gap BUN Creatinine Estimated Creat Clear Estimated GFR Glucose Calcium Total Bilirubin AST ALT Alkaline Phosphatase Total Protein Albumin Lipase Urine Color Urine Appearance Urine pH Ur Specific Barry Urine Protein Urine Glucose (UA) Urine Ketones Urine Blood Urine Nitrite Urine Bilirubin Urine Urobilinogen Ur Leukocyte Esterase Urine RBC Urine WBC Ur Squamous Epith Cells Urine Bacteria Urine HCG, Qual Blood Type O Positive Antibody Screen NEGATIVE
--- NOTE | 2024-07-27 08:32 | PC.NURSE ---
When pt was seen at 0725 pt was c/o at a 9/10 in her left lower abd. Pain meds given around 0645 had not helped also using kpad. Dr. Martinez notified of pain. saw the pt. Plan to continue to monitor. Pain meds as ordered.
[2024-07-29 11:52] LABS: HCG Quantitative* < 2.39 mIU/mL
== END 2024-07-27 12:50 | disposition home or self-care (01) ==
LOC: ED 22:50 → SS 22:58 → OB 07-27 10:27
PROVIDERS: Family Medicine; Emergency Provider Emergency Medicine; PCP Physician Assistant Medical; Visit Provider Obstetrics & Gynecology
PROC: (CPT 49320; principal; 2024-07-26 23:15)
DX: K66.1 Hemoperitoneum (principal); N83.6 Hematosalpinx; N80.101 Endometriosis of right ovary, unspecified depth; N83.291 Other ovarian cyst, right side; R10.84 Generalized abdominal pain; D25.1 Intramural leiomyoma of uterus; D64.9 Anemia, unspecified; N39.0 Urinary tract infection, site not specified; J98.4 Other disorders of lung
CPT/HCPCS: 49322; 58662; 58661; 00840; 36415; 71275; 74177; 76830; 80053; 81001; 81025; 83690; 84702; 85025; 86850; 86900; 86901; 87086; 88305; 93976; 94761; 99140; 99284; 99285; A9270; J0330; J0665; J0696; J1171; J1885; J2175; J2250; J2371; J2405; J2704; J3010; J7030; J7120; Q9967

== ENCOUNTER 2024-08-10 12:00 | Outpatient (CLI) | payer BC, SELFPAY | END 2024-08-10 12:01 | disposition home or self-care (01) | PROVIDERS: PCP Physician Assistant Medical; Visit Provider Obstetrics & Gynecology | DX: N97.0 Female infertility associated with anovulation (principal) | CPT/HCPCS: 83498; 83520; 84146; 84270; 84402; 84403; 84443 ==

== ENCOUNTER 2024-08-27 19:02 | Emergency (ER) | payer BC, SELFPAY ==
[2024-08-27 19:06] VITALS: BP 115/75; PULSE 89; RESP 16; TEMP 36.9; O2SAT 98; BMI 30.7
--- NOTE | 2024-08-27 19:14 | ED.GENADULT ---
HPI - General Adult General Chief complaint: Back Injury/Pain Stated complaint: Back pain Time Seen by Provider: 08/27/24 19:13 History of Present Illness HPI narrative: mid back pain more on R side started at 1400 , unknown cause . tylenol 1g and 600 ibu. 28-year-old young woman presenting to the emergency department with concern of sharp pain of fairly abrupt onset beginning in the mid back. 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 She describes pain between her shoulder blades. She has trouble describing what makes this current pain better or worse. It is just sharp. At onset today she was walking to her car anticipating going to a chiropractor for her more regular upper back care. She had called in recommended for ibuprofen and acetaminophen. Last took ibuprofen about 3 hours prior to arrival. Seemed to maybe help just a little bit but then pain has flared intensely. No radicular symptoms. Began when she was walking to the car thinking that it was time for her regular chiropractic appointment. After care there it did not seem to change this pain. She does not have any hematuria or dysuria. I do review records which show recent CT imaging without evidence of nephrolithiasis. Did have surgery of diagnostic laparoscopy evacuation of hemoperitoneum fulguration excision of endometriosis and right salpingectomy on 07/26/2024. Overall has improved from that. Occasional twinges of pain in the abdomen however. Apparently did have a tubal on the right resulting in this hemoperitoneum. No radicular symptoms No fever chills or night sweats. When I discuss options for evaluation and cares she is hesitant to receive IV or blood draw but ultimately would be willing to do what is necessary I think. Related Data Home Medications ?Medication ?Instructions ?Recorded ?Confirmed multivitamin (Daily Multi-Vitamin 1 tab PO QAM 06/02/23 08/10/24 tablet) omega 4-ups-ohu-fish oil 60 mg-90 1 cap PO QDAY 06/02/23 08/10/24 mg-500 mg capsule (Fish Oil) flaxseed oil 1,000 mg capsule 1,000 mg PO QDAY 12/31/23 08/10/24 len (Zingiber officinalis) 250 250 mg PO QDAY 12/31/23 08/10/24 mg capsule Previous Rx's ?Medication ?Instructions ?Recorded acetaminophen 500 mg tablet 1,000 mg (2 x 500 mg) PO Q6H PRN 07/27/24 Pain #0 tabs ibuprofen 600 mg tablet 600 mg PO Q6H PRN Pain #0 tabs 07/27/24 nitrofurantoin 100 mg PO BID 5 days #10 caps 07/27/24 monohydrate/macrocrystals 100 mg capsule (Macrobid) Allergies Allergy/AdvReac Type Severity Reaction Status Date / Time No Known Drug Allergies Allergy Verified 08/10/24 11:16 Review of Systems Status of ROS: Reports: 6 or more systems reviewed and unremarkable except as noted in History and below PFSH PFSH Medical History Endometriosis ?N80.9 - Endometriosis, unspecified (ICD-10) Family history of breast cancer ?Z80.3 - Family history of malignant neoplasm of breast (ICD-10) Surgical History S/P laparoscopy (07/26/24) ?Z98.890 - Other specified postprocedural states (ICD-10) History of wisdom tooth extraction ?K08.409 - Partial loss of teeth, unspecified cause, unspecified class (ICD-10) Family History Mother Breast cancer Social History Narrative: Cis-gender, heterosexual woman. Relationship status: . Spouse/Partner: Brandon Education: High school graduate Occupation: [employer] services at [employer] Tobacco: Lifetime nonsmoker E-cigarettes: No Alcohol: No Illicit/recreational drugs: No Safety concerns at home or work: No Dietary restriction(s): None Exercise: Yes, at least 3 days a week lifting weights and yoga. She also has a very physical job. What is your current living situation?: I presently have a place to live Problems where you live: no known problems In the past 12 months, utilities in danger of being shut off: no In past 12 months, lack of transportation kept you from medical appts, meetings, work, or getting things needed for daily living: no In the past 12 mos, have been you worried that your food would run out before you had money to buy more?: never true In the past 12 mos, the food you bought just didn't last and you didn't have money to buy more?: never true Smoking Status: Never smoker Second hand tobacco smoke exposure: No How often do you have a drink containing alcohol: never AUDIT-C Alcohol total score: 0 Non-prescribed substance use: denies use How often does anyone, including family, friends and others, physically hurt you: never How often does anyone, including family, friends and others, insult or talk down to you: never How often does anyone, including family, friends and others, threaten you with harm: never How often does anyone, including family, friends and others, scream or curse at you: never Exam Narrative: Exam Narrative: Pleasant. Seems occasionally on the verge of tears in apparent discomfort. Breathing easily. Seems to have intensifying pain when she goes to try to stand up straight. Pain seems to be mostly midline spine at about T8 or T9. Not really able to reproduce it though. Heart in regular rate and rhythm. No flank pain. Abdomen is soft and wholly nontender. Well-healing trocar sites. Const: Vital Signs, click to edit/add: Vital Signs - 24 hr 08/27/24 19:06 08/27/24 20:00 08/27/24 21:55 Temperature 98.5 F 98.5 F Pulse Rate [Pulse Oximeter] 89 84 Respiratory Rate 16 16 Blood Pressure [Le ft Upper Arm] 115/75 121/81 Pulse Oximetry 98 98 98 Oxygen Delivery Me thod Room Air Room Air 08/27/24 21:56 Temperature 98.5 F Pulse Rate [Pulse Oximeter] 84 Respiratory Rate 16 Blood Pressure [Le ft Upper Arm] 121/81 Pulse Oximetry Oxygen Delivery Me thod Documenting provider has reviewed patient's vital signs: yes Course Vital Signs Vital signs: Initial Vital Signs Temperature 98.5 F 08/27/24 19:06 Temperature Source Temporal Artery Scan 08/27/24 19:06 Pulse Rate 89 08/27/24 19:06 Respiratory Rate 16 08/27/24 19:06 Blood Pressure 115/75 08/27/24 19:06 Blood Pressure Mean 88 08/27/24 19:06 Blood Pressure Position Sitting 08/27/24 19:06 Pulse Oximetry 98 08/27/24 19:06 Oxygen Delivery Method Room Air 08/27/24 19:06 Vital Signs Temperature 98.5 F 08/27/24 19:06 Pulse Rate 89 08/27/24 19:06 Respiratory Rate 16 08/27/24 19:06 Blood Pressure 115/75 08/27/24 19:06 Pulse Oximetry 98 08/27/24 19:06 Oxygen Delivery Method Room Air 08/27/24 19:06 Temperature 98.5 F 08/27/24 21:56 Pulse Rate 84 08/27/24 21:56 Respiratory Rate 16 08/27/24 21:56 Blood Pressure 121/81 08/27/24 21:56 Pulse Oximetry 98 08/27/24 21:55 Oxygen Delivery Method Room Air 08/27/24 21:55 Medications Administered Medications: Discontinued Medications Generic Name Dose Route Start Last Admin Trade Name Freq PRN Reason Stop Dose Admin Lidocaine 1 patch 08/27/24 20:54 08/27/24 21:02 Lidocaine 5% Patch TRANSDERMA 08/27/24 20:55 1 patch ONCE ONE Administration Protocol Oxycodone HCl 5 mg 08/27/24 20:51 08/27/24 21:01 Oxycodone 5 Mg Tablet PO 08/27/24 20:52 5 mg ONCE ONE Administration Oxycodone HCl 2.5 mg 08/27/24 20:51 08/27/24 21:01 Oxycodone 5 Mg Tablet PO 08/27/24 20:52 2.5 mg ONCE ONE Administration Oxycodone/Acetaminophen 2 tab 08/27/24 19:23 08/27/24 19:30 Oxycodone/Apap 5-325 Tablet PO 08/27/24 19:24 2 tab ONCE ONE Administration Prednisone 60 mg 08/27/24 20:06 08/27/24 20:08 Prednisone 20 Mg Tablet PO 08/27/24 20:07 60 mg ONCE ONE Administration Medical Decision Making MDM Narrative Medical decision making narrative: Could be vascular disruption but no aneurysm or other abnormalities were noted on recent CT imaging and furthermore would be otherwise low risk. Does not appear to have symptoms in the abdomen. I suppose this could be a spontaneous abscess or bleed in the thoracic area spine. Atypical presentation for nephrolithiasis/ureteral stone furthermore did not have any visualized on recent imaging. Inflammation otherwise in the spine related to osteoarthritis or other ?pinched nerve?. She does not have radicular symptoms. Diskitis? No infectious symptoms otherwise. Given intensity of her discomfort will though proceed with thoracic spine CT imaging might prompt further evaluation. Collect urinalysis. I did independently review CT imaging without any significant abnormality noted. I did discuss case with radiologist who read CT imaging as relatively unremarkable other than some mild degenerative changes and spondylosis. No evidence to suggest diskitis or evidence of fluid collection otherwise. Improved temporarily with 2 tablets of Percocet. Following unremarkable findings on CT I did also prescribe prednisone. With recurrence of symptoms I think partly exacerbated by imaging and extension that was needed for images, re-dosed with oxycodone. Also placed a lidocaine patch on mid back Urinalysis with 2-5 red and white cells on microscopic. No indication of infection otherwise. We will check a CBC just to be certain there isn't a markedly elevated white count. It might be mildly elevated considering relatively recent surgical intervention. CBC is reassuring Again mildly improved on reassessment. See patient discharge plan for further discussion At this point I think we need to treat your pain as musculoskeletal. can take 400-600mg of ibuprofen 3 - 4 times daily. Alternative might be 375mg of naproxen 2 times daily. Either may be combined with up to 1000mg of acetaminophen per dose. I am prescribing a course of prednisone from [facility] that you can start tomorrow. Also from [facility], percocet which contains the opiate oxycodone. This can make you sleepy as well as constipated. On the days you take this, consider taking 1 - 2 tablets of a senna-containing bowel aid. Keep in mind also that Percocet contains 325mg of acetaminophen per tablet. Also prescribing cyclobenzaprine (also known as Flexeril) from [facility]. This is a muscle relaxer that can also make you sleepy. Be seen if not improved after a week, uncontrolled pain, fever, new swelling. If this lidocaine patch seems helpful, I understand that y'all have more at home and you can purchase more over the counter. Medical Records Medical records reviewed: Yes I reviewed the patient's medical records Lab Data Lab results reviewed: Yes I reviewed the patient's lab results Labs: Lab Results 08/27/24 08/27/24 Range/Units 19:24 21:22 WBC 7.80 (4.50-11.00) K/uL RBC 4.14 (4.00-5.20) m/uL Hgb 11.9 L (12.0-16.0) gm/dL Hct 35.7 (33.0-51.0) % MCV 86 (80-100) fL MCH 29 (26-34) pg MCHC 33 (32-36) gm/dL RDW Coeff of Calvin 11.8 (11.5-15.5) % Plt Count 232 (140-440) K/uL Neut % (Auto) 50.1 (42.0-72.0) % Lymph % (Auto) 39.4 (20-44) % [place] % (Auto) 6.3 (0.0-11.0) % Eos % (Auto) 3.5 (0.0-7.0) % Baso % (Auto) 0.6 (0.0-3.0) % Neut # (Auto) 3.91 (1.7-7.0) K/uL Lymph # (Auto) 3.07 H (0.90-2.90) K/uL [place] # (Auto) 0.50 (0.00-0.90) K/UL Eos # (Auto) 0.27 (0.00-0.50) K/uL Baso # (Auto) 0.05 (0.00-0.30) K/uL Abs Immat Gran (auto) 0.01 (0.00-0.30) K/uL Imm/Tot Granulo (auto) 0.1 % Urine Color Yellow (Yellow) Urine Appearance Clear (Clear) Urine pH 6.0 (5.0-8.5) Ur Specific [place] 1.015 (1.000-1.030) Urine Protein Negative (Negative) Urine Glucose (UA) Negative (Negative) Urine Ketones Negative (Negative) Urine Blood Trace-intact A (Negative) Urine Nitrite Negative (Negative) Urine Bilirubin Negative (Negative) Urine Urobilinogen 0.2 (0.2-1.0) Ur Leukocyte Esterase Trace A (Negative) Urine RBC 2-5 A (0-2) Urine WBC 2-5 (0-5) Ur Squamous Epith Cells Few (None-Few) Urine Bacteria Few A (None) Discharge Plan Discharge Clinical Impression: Acute midline thoracic back pain Patient Disposition: Home w/ Parent or Adult Condition: Stable Additional Instructions: At this point I think we need to treat your pain as musculoskeletal. can take 400-600mg of ibuprofen 3 - 4 times daily. Alternative might be 375mg of naproxen 2 times daily. Either may be combined with up to 1000mg of acetaminophen per dose. I am prescribing a course of prednisone from [facility] that you can start tomorrow. Also from [facility], percocet which contains the opiate oxycodone. This can make you sleepy as well as constipated. On the days you take this, consider taking 1 - 2 tablets of a senna-containing bowel aid. Keep in mind also that Percocet contains 325mg of acetaminophen per tablet. Also prescribing cyclobenzaprine (also known as Flexeril) from [facility]. This is a muscle relaxer that can also make you sleepy. Be seen if not improved after a week, uncontrolled pain, fever, new swelling. If this lidocaine patch seems helpful, I understand that y'all have more at home and you can purchase more over the counter. Prescriptions: No Action flaxseed oil 1,000 mg capsule 1,000 mg PO QDAY Rx Instructions: administer with a meal len (Zingiber officinalis) 250 mg capsule 250 mg PO QDAY omega 0-qaf-bpo-fish oil [Fish Oil] 60-90-500 mg capsule 1 cap PO QDAY multivitamin [Daily Multi-Vitamin] Tablet 1 tab PO QAM acetaminophen 500 mg Tablet 1,000 mg PO Q6H PRN (Reason: Pain) Qty: 0 0RF ibuprofen 600 mg Tablet 600 mg PO Q6H PRN (Reason: Pain) Qty: 0 0RF nitrofurantoin monohyd/m-cryst [Macrobid] 100 mg capsule 100 mg PO BID 5 Days Qty: 10 0RF Rx Instructions: must administer with a meal/food Follow Up/Referrals: Jatin Perez PA-C [Physician Flume Worker] - Stand Alone Forms: [facility] Info Instructions
--- NOTE | 2024-08-27 19:23 | CRLHL7_ITS ---
For Patients: As a result of the Century Cures Act, medical imaging exams and procedure reports are released immediately into your electronic medical record. You may view this report before your referring provider. If you have questions, please contact your health care provider. INDICATION: New onset of severe mid thoracic pain with no trauma. TECHNIQUE: Axial CT cuts were performed from lower cervical spine to the upper lumbar spine. The images have been formatted and reviewed in the sagittal, axial and coronal planes. FINDINGS: There is no fracture or dislocation. There is very slight multilevel anterior osteophytic spurring of the mid thoracic spine. There is no disc herniation, central spinal stenosis or foraminal stenosis. IMPRESSION: Very mild thoracic spondylosis. Please note that all CT scans at this facility use dose modulation, iterative reconstruction, and/or weight-based dosing when appropriate to reduce radiation dose to as low as reasonably achievable. Dictated by Bowen Foster MD @ 08/27/2024 8:00:20 PM (Electronically Signed)
[2024-08-27] MEDS: OxyCODONE/APAP 5-325 TABLET 2 TAB PO (19:30)
[2024-08-27 19:41] LABS: Appearance Urine Clear (Clear); Bilirubin Urine Negative (Negative); Blood Urine Trace-intact (Negative); Color Urine Yellow (Yellow); Glucose Urine Negative (Negative); Ketones Urine Negative (Negative); Leukocyte Esterase Urine Trace (Negative); Nitrite Urine Negative (Negative); Protein Urine Negative (Negative); Specific Gravity Urine 1.015 (1.000-1.030); Urobilinogen Urine 0.2 (0.2-1.0)
[2024-08-27 19:52] LABS: Bacteria Urine Few; Squamous Epithelial Cell Urine Few (None-Few)
[2024-08-27 20:00] VITALS: O2SAT 98
[2024-08-27] MEDS: predniSONE 20 MG TABLET 60 MG PO (20:08)
[2024-08-27] MEDS: OXYCODONE 5 MG TABLET 2.5 MG PO (21:01)
[2024-08-27] MEDS: OXYCODONE 5 MG TABLET PO (21:01)
[2024-08-27] MEDS: LIDOCAINE 5% PATCH 1 PATCH TRANSDERMA (21:02)
[2024-08-27 21:26] LABS: Basophils Absolute Auto 0.05 K/uL (0.00-0.30); Basophils Percent Auto 0.6 % (0.0-3.0); Eosinophils Absolute Auto 0.27 K/uL (0.00-0.50); Eosinophils Percent Auto 3.5 % (0.0-7.0); Hematocrit 35.7 % (33.0-51.0); Hemoglobin* 11.9 gm/dL (12.0-16.0); Immature Granulocytes Abs Auto 0.01 K/uL (0.00-0.30); Immature Granulocytes Pct Auto 0.1 %; Lymphocytes Absolute Auto 3.07 K/uL (0.90-2.90); Lymphocytes Percent Auto 39.4 % (20-44); Mean Corpuscular HGB Conc 33 gm/dL (32-36); Mean Corpuscular Hemoglobin 29 pg (26-34); Mean Corpuscular Volume 86 fL (80-100); Monocytes Percent Auto 6.3 % (0.0-11.0); Neutrophils Absolute Auto 3.91 K/uL (1.7-7.0); Neutrophils Percent Auto 50.1 % (42.0-72.0); Platelet Count* 232 K/uL (140-440); RDW Coefficient of Variation % 11.8 % (11.5-15.5); Red Blood Count 4.14 m/uL (4.00-5.20)
[2024-08-27 21:28] LABS: Slide Review Reflex No
[2024-08-27 21:55] VITALS: BP 121/81; PULSE 84; RESP 16; TEMP 36.9; O2SAT 98
[2024-08-27 21:56] VITALS: BP 121/81; PULSE 84; RESP 16; TEMP 36.9
== END 2024-08-27 21:56 | disposition home or self-care (01) ==
PROVIDERS: Emergency Provider Family Medicine
DX: M54.6 Pain in thoracic spine (principal); R10.9 Unspecified abdominal pain
CPT/HCPCS: 36415; 72128; 81001; 85025; 87086; 94761; 99284; A9270; J7512

== ENCOUNTER 2024-10-20 09:52 | Outpatient (CLI) | payer BC, SELFPAY ==
--- NOTE | 2024-10-20 10:15 | CRLHL7_ITS ---
For Patients: As a result of the Century Cures Act, medical imaging exams and procedure reports are released immediately into your electronic medical record. You may view this report before your referring provider. If you have questions, please contact your health care provider. Indication: Infertility Technique: Routine hysterosalpingogram performed. Fluoroscopic time 26 seconds. IMPRESSION: Status post right salpingectomy. Normal patency of the left fallopian tube with spillage into the peritoneal cavity. Normal endometrial canal. Dictated by Timbo Bianchi MD @ 10/20/2024 3:56:51 PM (Electronically Signed)
--- NOTE | 2024-10-20 12:17 | W.PM.GYNPROC ---
Procedure Note Date of procedure: 10/20/24 Will [facility] bill your pro fee for this procedure?: Yes Pre-op diagnosis: Infertility evaluation Endometriosis History of right salpingectomy due to ruptured ectopic Post-op diagnosis: Same Procedure: Hysterosalpingogram Anesthesia: none Complications: None Surgeon: Андрей Palacios MD Estimated blood loss (mL): 2 Pathology: none sent Condition: stable Disposition: other (Home) Findings: Normal shaped uterus, patent left fallopian tube w/o abnormalities. Procedure Description: PROCEDURE: After obtaining verbal consent, the patient was placed in the dorsal lithotomy position on the x-ray table. An open-sided bivalve speculum was introduced into the vagina and the cervix easily visualized. The cervix and vagina were then prepped with Betadine. The anterior lip of the cervix was grasped with a single-tooth tenaculum for traction. A balloon tipped double-lumen catheter was then gently inserted through the cervical opening into the uterine cavity to the level of the fundus. The balloon was insufflated with 3 mL of air. The tenaculum and speculum were removed. The patient was repositioned in the supine position, covered, and the radiologist was called to the room. A hysterosalpingogram was then performed. A total of 10 cc of Optiray 300 water soluble contrast dye was injected through the double-lumen catheter under moderate pressure. There was immediate fill of the uterine cavity to the cornua and immediate fill of the left fallopian tube and free spillage of dye on the left side. The balloon was deflated. The catheter was removed. The patient tolerated the procedure well, though she did have moderate cramping discomfort during and just after the procedure. She was discharged to home in stable condition and to [facility].
== END 2024-10-20 09:53 | disposition home or self-care (01) ==
LOC: RAD 09:53
PROVIDERS: Visit Provider Obstetrics & Gynecology
DX: N97.9 Female infertility, unspecified (principal); Z87.59 Personal history of other complications of pregnancy, childbirth and the puerperium
CPT/HCPCS: 58340; 74740; A4649; Q9966; Q9967